=== PATIENT | male | born 1975 | race Caucasian/White ===

== ENCOUNTER 2020-07-02 16:27 | Inpatient (IN) | payer BC ==
[~2020-07-02] VITALS: Ht 185.4 cm; Wt 93.4 kg
[2020-07-02 19:40] LABS: HEMOGLOBIN 16.1 gm/dl (14.0-17.5); RED BLOOD COUNT 5.47 M/UL (4.20-5.50); WHITE BLOOD COUNT 8.7 K/UL (4.5-11.0)
[2020-07-02 20:02] LABS: BUN/CREATININE RATIO 15 (0-10)
[2020-07-03 06:47] LABS: HEMOGLOBIN 15.1 gm/dl (14.0-17.5); RED BLOOD COUNT 5.21 M/UL (4.20-5.50); WHITE BLOOD COUNT 6.6 K/UL (4.5-11.0)
[2020-07-03 07:16] LABS: BUN/CREATININE RATIO 13 (0-10)
[2020-07-03 10:39] LABS: ADENOVIRUS F 40/41 Not Detected (Negative); ASTROVIRUS Not Detected (Negative); CAMPYLOBACTER Not Detected (Negative); CLOSTRIDIUM DIFFICILE TOX A/B Not Detected (Negative); CRYPTOSPORIDIUM Not Detected (Negative); E.COLI 0157 Not Detected (Negative); ENTAMOEBA HISTOLYTICA Not Detected (Negative); ENTEROPATHOGENIC E.COLI (EPEC) Not Detected (Negative); ENTEROTOXIGENIC E.COLI (ETEC) Not Detected (Negative); GIARDIA LAMBLIA Not Detected (Negative); NOROVIRUS GI/GII Not Detected (Negative); PLESIOMONAS SHIGELLOIDES Not Detected (Negative); ROTOVIRUS A Not Detected (Negative); SALMONELLA Not Detected (Negative); SAPOVIRUS Not Detected (Negative); SHIG/ENTEROINVAS.ECOLI (EIEC) Not Detected (Negative); SHIGA-LIK TOX.PRO.E.COLI (STEC Not Detected (Negative); VIBRIO Not Detected (Negative); VIBRIO CHOLERAE Not Detected (Negative); YERSINIA ENTEROCOLITICA Not Detected (Negative)
[2020-07-03 12:29] LABS: ENTEROAGGREGATIVE E.COLI (EAEC DETECTED (Negative)
--- NOTE | 2020-07-04 03:15 | NUR ---
report given haroon kidd
[2020-07-04 03:34] LABS: HEMOGLOBIN 14.4 gm/dl (14.0-17.5); RED BLOOD COUNT 4.93 M/UL (4.20-5.50); WHITE BLOOD COUNT 6.6 K/UL (4.5-11.0)
[2020-07-04 04:04] LABS: BUN/CREATININE RATIO 16 (0-10)
[2020-07-05 05:54] LABS: HEMOGLOBIN 13.3 gm/dl (14.0-17.5); RED BLOOD COUNT 4.67 M/UL (4.20-5.50); WHITE BLOOD COUNT 6.4 K/UL (4.5-11.0)
[2020-07-05 06:10] LABS: BUN/CREATININE RATIO 14 (0-10)
[2020-07-06 04:25] LABS: BUN/CREATININE RATIO 12 (0-10); HEMOGLOBIN 13.1 gm/dl (14.0-17.5); RED BLOOD COUNT 4.54 M/UL (4.20-5.50); WHITE BLOOD COUNT 5.2 K/UL (4.5-11.0)
[2020-07-06] MEDS ORDERED: LEVOFLOXACIN750 MG PO ×3 (09:16→09:35)
[2020-07-06] MEDS ORDERED: FLAGYL500 MG PO ×3 (09:16→09:35)
[2020-07-06] MEDS ORDERED: ZOFRAN 4 MG TAB4 MG PO (09:16)
[2020-07-06] MEDS ORDERED: PROTONIX20 MG PO (09:20)
== END 2020-07-06 13:00 | disposition home or self-care (01) | DRG 345 ==
LOC: ER1 16:27 → CDU 21:24 → M/S 22:53
PROVIDERS: Internal Medicine; Internal Medicine Gastroenterology; Physician Assistant; ADMIT Internal Medicine
PROC: 0D9N8ZZ Drainage of Sigmoid Colon, Via Natural or Artificial Opening Endoscopic (ICD-10-PCS; 2020-07-04)
PROC: 0DBM8ZX Excision of Descending Colon, Via Natural or Artificial Opening Endoscopic, Diagnostic (ICD-10-PCS; 2020-07-04)
PROC: 0DBN8ZX Excision of Sigmoid Colon, Via Natural or Artificial Opening Endoscopic, Diagnostic (ICD-10-PCS; 2020-07-04)
PROC: 0D9M8ZZ Drainage of Descending Colon, Via Natural or Artificial Opening Endoscopic (ICD-10-PCS; principal; 2020-07-04 10:00)
DX: K51.90 Ulcerative colitis, unspecified, without complications (principal); A09 Infectious gastroenteritis and colitis, unspecified; Q43.8 Other specified congenital malformations of intestine; K51.50 Left sided colitis without complications; R58 Hemorrhage, not elsewhere classified; B96.20 Unspecified Escherichia coli [E. coli] as the cause of diseases classified elsewhere; K21.9 Gastro-esophageal reflux disease without esophagitis; J30.9 Allergic rhinitis, unspecified; Z80.8 Family history of malignant neoplasm of other organs or systems
CPT/HCPCS: 36415; 80048; 80053; 81001; 83605; 83690; 85007; 85025; 85027; 85652; 86140; 87086; 87507; 96365; 96375; 99284; J1650; J1956; J2270; J2405; J2704; J3480; J7030; J7040; Q9967; U0002